=== PATIENT | female | born 1965 ===

== ENCOUNTER 2025-05-14 01:29 | Emergency (ER) | payer BC, OTHER, SELFPAY ==
[2025-05-14 01:37] VITALS: BP 124/75; PULSE 63; RESP 18; TEMP 36.6; O2SAT 98
--- NOTE | 2025-05-14 01:55 | W.ED.GENAD ---
Discharge Plan Disposition Patient Disposition: Home Condition: Good Discharge Details Clinical Impression: Folliculitis Primary Care Provider: Unknown,Unknown ED Provider: Kalia Crisostomo Home Meds and New Rx's Prescriptions: New clindamycin phosphate 1 % foam 1 applic topical DAILY Qty: 50 0RF sulfamethoxazole-trimethoprim [Bactrim DS] 800-160 mg tablet 1 tab PO BID Qty: 14 0RF No Action montelukast 10 mg tablet 10 mg PO DAILY Discharge Instructions Instructions: Bacterial Folliculitis (DC) Additional Instructions: At this time you show evidence of mild folliculitis on exam. Please take the Bactrim as prescribed. If you notice that your symptoms persist you can also use the clindamycin wash to help reduce these from occurring again. If you notice any worsening of your symptoms, or any new symptoms such as vomiting, diarrhea, fever, chills, shortness of breath, chest pain, numbness, weakness, or fainting , please return immediately to the emergency department for reevaluation. Please follow up with your primary care provider as soon as possible for reassessment and reevaluation. As always, it was a pleasure participating in your medical care today. HPI General Date/Time Provider Initiated Documentation: 05/14/25 01:35. HPI Narrative: This is a pleasant 60-year-old female with no significant past medical history who is on no medications aside for the occasional dose Mounjaro who presents today for genital lesions. Patient states that she went into menopause many years ago, and since then over the last 20 years she has had small little bumps on the vulvar and vaginal area. These have never caused any problem pain or discomfort except for the last few days when they became erythematous, developed some mild purulent centers, and became mildly tender. She denies any new lotions, underwear, or other abnormalities. She denies intercourse in the last 10 years. She denies any atypical swimming or heat activities in that area. No other modifying factors otherwise. She did take a sitz bath, and did faced some of the lesions which caused them to drain and which notably improved her symptoms. She denies any other complaints at this time. No history of STDs. No atypical vaginal discharge. Related Data Home Medications Medication Instructions Recorded Confirmed clindamycin phosphate 1 % topical 1 applic topical DAILY #50 grams 05/14/25 foam montelukast 10 mg tablet 10 mg PO DAILY 05/14/25 05/14/25 sulfamethoxazole 800 1 tab PO BID #14 tabs 05/14/25 mg-trimethoprim 160 mg tablet (Bactrim DS) Previous Rx's Medication Instructions Recorded clindamycin phosphate 1 % topical 1 applic topical DAILY #50 grams 05/14/25 foam sulfamethoxazole 800 1 tab PO BID #14 tabs 05/14/25 mg-trimethoprim 160 mg tablet (Bactrim DS) Allergies Allergy/AdvReac Type Severity Reaction Status Date / Time No Known Allergies Allergy Unverified 05/14/25 01:54 General 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 3.ENT: Atraumatic external nose and ears. Moist MM. Neck: Symmetric, trachea midline, No thyromegaly. 4.CVS: +S1/S2, Peripheral pulses 2+ and equal in all extremities. Brisk capillary refill in all extremities. 5.RESP: Unlabored respiratory effort. Clear to auscultation bilaterally. No wheezes rales or rhonchi 6.GI: Soft, Nontender/Nondistended, No hepatosplenomegaly. No guarding or rebound. Physical exam of the genital region with female nurse done at bedside demonstrates no evidence of large Bartholin gland abscess or cyst. She does have a few scattered healing 9 erythematous lesions. No vesicles. No erythema, no evidence of large abscess. No ulcers, no evidence to suggest herpes. 7.MSK: Normocephalic/Atraumatic, Extremities w/o deformity or ttp No cyanosis or clubbing, Normal movement of all extremities 8.Skin: Warm, Dry. No rashes or lesions. 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 Sensation grossly intact, no focal neurologic deficits. 10.Psych: (AAO) x3. Appropriate mood and affect Course Vital Signs Vital signs: Vital Signs Temperature 36.6 C 05/14/25 01:37 Pulse 63 05/14/25 01:37 Respiratory Rate 18 05/14/25 01:37 Blood Pressure 124/75 05/14/25 01:37 Pulse Oximetry 98 05/14/25 01:37 Temperature 36.6 C 05/14/25 01:37 Temperature Source Oral 05/14/25 01:37 Pulse 63 05/14/25 01:37 Respiratory Rate 18 05/14/25 01:37 Blood Pressure 124/75 05/14/25 01:37 Pulse Oximetry 98 05/14/25 01:37 Oxygen Delivery Method Room Air 05/14/25 01:37 Oxygen Flow Rate 0 05/14/25 01:37 Medical Decision Making This is a pleasant 60-year-old female with no significant past medical history who is on no medications aside for the occasional dose Mounjaro who presents today for genital lesions. Patient states that she went into menopause many years ago, and since then over the last 20 years she has had small little bumps on the vulvar and vaginal area. These have never caused any problem pain or discomfort except for the last few days when they became erythematous, developed some mild purulent centers, and became mildly tender. She denies any new lotions, underwear, or other abnormalities. She denies intercourse in the last 10 years. She denies any atypical swimming or heat activities in that area. No other modifying factors otherwise. She did take a sitz bath, and did faced some of the lesions which caused them to drain and which notably improved her symptoms. She denies any other complaints at this time. No history of STDs. No atypical vaginal discharge. Physical exam of the genital region with female nurse done at bedside demonstrates no evidence of large Bartholin gland abscess or cyst. She does have a few scattered healing 9 erythematous lesions. No vesicles. No erythema, no evidence of large abscess. No ulcers, no evidence to suggest herpes. Symptoms appear consistent with mild folliculitis. No evidence to suggest other concerning abnormality or STD. Patient otherwise remains notably stable with no abdominal tenderness, guarding or rebound. Will prescribe Bactrim to help with the complete resolution of these folliculitis lesions. Discussed red flags for which to return. Will give clindamycin wash for home use as needed. I have extensively reviewed the treatment plan and discharge instructions with the patient. I have addressed all patient concerns at this time. The patient was made aware of what symptoms to monitor for that would warrant a return to the emergency department. Discussed the plan with the patient, they demonstrate verbal understanding and agreement with our assessment and plan at this time. The documentation in this chart was dictated using [employer] dictation software. Please excuse any dictation errors. PFSH All Active Problems (Updated 05/14/25 @ 01:55 by Kalia Crisostomo DO) Folliculitis (Acute) Social History Smoking/Tobacco Use Status: Never Smoking risk assessment performed?: Yes Alcohol Intake: never Substance use type: does not use Housing: house
[2025-05-14] MEDS: Sulfameth/Trimeth DS, 2 TABS/BTL 1 TAB PO (02:10)
[2025-05-14 02:14] VITALS: PULSE 60; RESP 18; O2SAT 98
--- NOTE | 2025-05-14 17:26 | NUR.NOTE ---
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 She has take home bottle of Bactrim to get her through until tomorrow. She is requesting that her prescriptions be called into [facility] in [place], [place] as she will be there tomorrow and would be easier to supervisor picking crew. Prescriptions printed and will be handed off to next Charge Nurse to call Pharmacy in [place] tomorrow AM when they re-open
--- NOTE | 2025-05-15 16:46 | NUR.NOTE ---
Patient called asking where the prescriptions were sent. She is in [place], [place] at [facility]. Spoke with Dr Good and he said that they could be called in to that pharmacy. Spoke with [place] [facility] and they can pick them up from [place] and will process them. Patient was called and is aware. Nursing Note:
== END 2025-05-14 02:14 | disposition home or self-care (01) ==
LOC: ER 02:26
PROVIDERS: Emergency Provider Student in an Organized Health Care Education/Training Program
DX: N89.9 Noninflammatory disorder of vagina, unspecified; L73.8 Other specified follicular disorders
CPT/HCPCS: 99283 ×2